=== PATIENT | male | born 1950 | race Caucasian/White ===

== ENCOUNTER 2016-08-26 21:44 | Inpatient (IN) | payer OTHER ==
--- NOTE | ~2016-08-26 | CT71 ---
[facility] A Service of [facility] RADIOLOGY TEXT RESULTS PATIENT: JM CULLEN [facility] 337-01 : 49 UNIT #: [id number] AGE: [address]: Nilo Miller MD SEX: M ORDER DR: [id number] [facility] [address] [facility]. [place], [place] [address] [id number] I MR#: [id number] #: [id number] NAME: JM CULLEN : 1950 SEX: M STUDY DATE/TIME: 08/26/2016 21:22 UNIT: CEDOF ROOM: 56652 STUDY DESCRIPTION: CT Head Wo Contrast Attending Physician: Nilo Miller M.D. Ordering Physician: Jac Li D.O. Primary Care Physician: No Primary Care Physician MEDICAL IMAGING REPORT This report is preliminary unless electronic signature is present EXAM CT brain without contrast. HISTORY Fever and confusion today. TECHNIQUE This CT exam was performed with one or more of the following radiation dose reduction techniques: automatic exposure control, adjustment of mA and/or kV according to patient size, and iterative reconstruction. FINDINGS CT brain without contrast demonstrates mild chronic ischemic changes in the deep white matter bilaterally. Tiny chronic lacunar infarct in the left alberto was better demonstrated on CT 08/12/2016. No intracranial hemorrhage, mass, or edema. No midline shift or ventricular dilatation or extraaxial fluid collection. Minimal mucosal thickening in the floor of the maxillary sinuses. IMPRESSION 1. No acute findings. 2. Mild chronic ischemic changes in the deep white matter bilaterally and small chronic lacunar infarct in the left alberto. Dictated by... Shalom Bryant M.D. THIS IS AN ELECTRONICALLY VERIFIED REPORT Shalom Bryant M.D. at 08/27/2016 3:34 PM DFL/kelsey [facility] A Service of [facility] RADIOLOGY TEXT RESULTS PATIENT: JM CULLEN LOCATION: [facility] 337-01 : [birth year] UNIT #: [id number] AGE: [address]: Nilo Miller MD SEX: M ORDER DR: TD: 08/27/2016 09:52 JOB #: [id number] MEDICAL IMAGING REPORT COPY
--- NOTE | ~2016-08-26 | EKG ---
PATIENT: JM CULLEN UNIT #: [id number] Ventricular Rate: 110 BPM Atrial Rate: 110 BPM P-R Interval: 144 ms QRS Duration: 134 ms Q-T Interval: 396 ms QTC Calculation(Bezet): 535 ms P Hydro: 66 degrees Calculated R Hydro: 74 degrees Calculated T Hydro: 53 degrees Diagnosis Line: Sinus tachycardia with occasional Premature Diagnosis Line: ventricular complexes Diagnosis Line: Right bundle branch block Diagnosis Line: Possible Inferior infarct , age undetermined Diagnosis Line: Abnormal ECG Diagnosis Line: No previous ECGs available Diagnosis Line: Confirmed by DEV ZAMBRANO MD ([id number]) on Diagnosis Line: 08/27/2016 4:13:13 PM INTERPRETING MD: KENYA GRAMAJO
--- NOTE | ~2016-08-26 | CO ---
Unit #: [id number] #: [id number] Patient: JM CULLEN [id number] [address] [place], [place] [address] [id number] I MR#: [id number] NAME: JM CULLEN ROOM: [facility] Age: 66 Sex: M Admission Date: 08/27/2016 : 1950 Attending Physician: Nilo Miller M.D. Primary Care Physician: Tari Primary Care Physician Requesting Physician: Mahi Grace M.D. Consultation Date: 08/27/2016 CONSULTATION REPORT REASON FOR CONSULTATION Chronic lymphatic leukemia with recurrent cellulitis. HISTORY OF PRESENT ILLNESS Mr. Jm Cullen is 66 years old, well known to me, with a history of CLL who is readmitted to the hospital through the emergency room with acute confusional state with recurrent cellulitis of his left hand. He had a blistering lesion and may have had a spider bite; however, the patient is not clear about it but was helping his son with some woodwork in the outside. According to his , who brought him into the hospital, he became quite confused with temperature of 101.3 in the ER with obvious cellulitis and is currently on broad-spectrum antibiotics. PAST MEDICAL HISTORY 1. Cellulitis, for which he was admitted on 08/12/2016. Blood cultures grew Pasteurella multocida with the cellulitis after a cat bite. He did have toxic metabolic encephalopathy with that admission. 2. Adult-onset diabetes mellitus. 3. History of MRSA sepsis pneumonia in April 2016. 4. Ischemic cardiomyopathy. 5. CLL. 6. Hypothyroidism. 7. Gastritis. 8. COPD. 9. Chronic kidney disease. PAST SURGICAL HISTORY 1. Cholecystectomy. 2. Left cataract extraction. ALLERGIES He has no known medication allergies. FAMILY HISTORY Negative for blood disorders. SOCIAL HISTORY Quit smoking last year. Occasionally uses an E-cigarette. He lives with his . Does not drink any alcohol. REVIEW OF SYSTEMS A 14-point review of systems was taken. CONSTITUTIONAL: As discussed above. EYES: Negative. Unit #: [id number] #: [id number] Patient: JM CULLEN EARS, NOSE, MOUTH AND THROAT: Negative. CARDIOVASCULAR: Negative. RESPIRATORY: Negative. GASTROINTESTINAL: Negative. MUSCULOSKELETAL: Pain and discomfort in his left hand. PSYCHIATRIC: Negative. SKIN: Cellulitis. ALLERGIC/LYMPHATIC: Negative. PHYSICAL EXAMINATION GENERAL: He is currently awake, alert, oriented x3. VITALS: Temperature is 98.2, pulse 60, respirations 18, blood pressure 159/79, O2 sats 96% on room air. HEENT: Exam shows pupils are equal and react well to light. Mild pallor. No icterus. Mucous membranes are moist. NECK: Neck without adenopathy, JVD or thyromegaly. CARDIOVASCULAR SYSTEM: First and second heart sounds were heard. Regular. No murmurs, gallops or rubs. LUNGS: Chest expansion is symmetric. Bilateral equal entry with normal breath sounds. ABDOMEN: Abdomen is soft, nontender. Liver and spleen nonpalpable. EXTREMITIES: He has a black blistering lesion on the base of his fifth metacarpal, along with cellulitis affecting the dorsum of the left hand. LYMPHATICS: No palpable lymph nodes. NEUROLOGIC: He is awake, alert and oriented x3 without any focal findings. DIAGNOSTIC STUDIES LABS: CBC with a white count of 3.4, hemoglobin 11.2, platelet count 111. ProTime is 10.7, INR 1. Metabolic panel shows a BUN of 14, creatinine 1, alkaline phosphatase 132, albumin 4, lactic acid 0.9. ASSESSMENT AND PLAN Mr. Jm Cullen is 66 years old with a history of CLL with multiple complex medical problems, including ischemic cardiomyopathy, hypothyroidism and COPD, readmitted with recurrent cellulitis of his left hand. His previous episode of cellulitis followed a cat bite; however, this episode may be connected with a spider bite or may be unprovoked. He is currently on broad-spectrum antibiotics after obtaining blood cultures. Discussed with Mr. Cullen whose confusional status is improved (1) infection. Recommended quantitative immunoglobulins to see whether his immunodeficiency is related to his recent treatment. Discussed that we will also check his thyroid function, as he has been hypothyroidism in the past secondary to not taking his medications. Thank you for allowing me to participate in his care, and I will follow with you. Dictated by... George Mercer M.D. MIGUEL ANGEL/tony TD: 08/29/2016 14:58 JOB #: [id number] Unit #: [id number] #: [id number] Patient: JM CULLEN CONSULTATION REPORT X George Mercer MD CONSULTATION REPORT
--- NOTE | ~2016-08-26 | CR72 ---
[facility] A Service of [facility] RADIOLOGY TEXT RESULTS PATIENT: JM CULLEN LOCATION: [facility] 337- : 49 UNIT #: [id number] AGE: [address]: Nilo Miller MD SEX: M ORDER DR: [id number] [facility] [address] [place], [place] [address] [id number] I MR#: [id number] Acc #: [id number] NAME: JM CULLEN : 1950 SEX: M STUDY DATE/TIME: 08/26/2016 21:03 UNIT: [facility] ROOM: 37774 STUDY DESCRIPTION: CR Chest Single View Portable Attending Physician: Nilo Miller M.D. Ordering Physician: Jac Li D.O. Primary Care Physician: Primary Care Physician No MEDICAL IMAGING REPORT This report is preliminary unless electronic signature is present EXAM AP portable chest, 08/26/2016 at 21:03 HISTORY 66-year-old male with fever, unresponsive, shortness of breath and acute mental status changes today. COMPARISON AP portable chest, 08/14/2016 FINDINGS Heart size is mildly enlarged but stable with signs of median sternotomy and CABG. Mild vascular prominence is present, similar to prior examination. No definite lung consolidations, pleural effusion or pneumothorax is seen. IMPRESSION Stable cardiomegaly with central vascular prominence or congestion. No lung consolidations. No significant change compared to 08/14/2016. Dictated by... Inés Clifton M.D. THIS IS AN ELECTRONICALLY VERIFIED REPORT Inés Clifton M.D. at 08/27/2016 2:09 PM VELVET/ceci TD: 08/27/2016 09:36 JOB #: [id number] MEDICAL IMAGING REPORT COPY
--- NOTE | ~2016-08-26 | HP ---
Unit #: [id number] #: [id number] Patient: JM CULLEN [id number] [address] [place], [place] [address] [id number] I MR#: [id number] NAME: JM CULLEN. ROOM: 04909 Age: 66 Sex: M Admission Date: 08/27/2016 : 1950 Attending Physician: Mahi Grace M.D. Primary Care Physician: No Primary Care Physician HISTORY AND PHYSICAL CHIEF COMPLAINT Left hand/forearm cellulitis with toxic metabolic encephalopathy. HISTORY This 66-year-old male with AODM, ischemic cardiomyopathy, CLL, is admitted for confusion with left hand and left forearm cellulitis. The patient was in his usual state of health until yesterday. His noted that the left hand had become red with a blood blister over the fifth MCP region. The patient was confused. He was brought to this emergency department last evening with a temperature of 101.3 with obvious cellulitis over the dorsum of the hand, left wrist, and forearm. No trauma. In the ER, the patient was treated with Tylenol, bolused with IV fluids, given Rocephin and vancomycin. He does have a history of MRSA. PAST MEDICAL HISTORY 1. Admission 08/12/2016 for cat bite right forearm with cellulitis and abscess requiring I and D. The patient was noted with toxic metabolic encephalopathy during that hospitalization. 2. AODM with peripheral neuropathy. 3. MRSA, sepsis and pneumonia 04/2016. 4. Ischemic cardiomyopathy, ejection fraction 45%, status post PCI and stent and status post four vessel CABG. 5. CLL, followed by Dr. Mercer. 6. Hypothyroidism. 7. Gastritis noted on EGD 02/2016. 8. COPD. 9. Chronic kidney disease. 10. Left cataract extraction. 11. Cholecystectomy. ALLERGIES No known drug allergies. HOME MEDICATIONS 1. Possibly Neurontin. 2. Glucotrol 5 mg q. a.m. 3. Synthroid 0.05 mg daily. 4. Aspirin 81 mg daily. 5. Protonix 20 mg daily. FAMILY HISTORY Unit #: [id number] #: [id number] Patient: JM CULLEN CAD and diabetes mellitus. SOCIAL HISTORY The patient lives with his and [id number]. He stopped smoking last fall but still uses an e-cigarette, does not use alcohol. REVIEW OF SYSTEMS Difficult to obtain as patient, himself, is a poor historian. He is quite hard of hearing and most of the history was obtained from . PHYSICAL EXAMINATION GENERAL APPEARANCE: 66-year-old male, currently in no acute distress. VITAL SIGNS: Temperature 101.3, pulse 102, respirations 18. Initial blood pressure 170/77. O2 saturation 92% on room air. HEENT: Eyes PERRLA. Extraocular muscles are intact. Pharynx is benign. NECK: Supple without adenopathy or thyromegaly. CHEST: Does reveal some crackles at the bases. CARDIAC: Normal S1 and S2 without definite murmur. ABDOMEN: Bowel sounds are present. No hepatosplenomegaly, tenderness or masses. EXTREMITIES: No pedal edema noted. There is obvious cellulitis over the dorsum of the left hand, left wrist, left forearm with a blood blister noted over the left MCP region. No crepitus. Good radial pulse noted. No splinter hemorrhages over the fingernail beds. NEUROLOGIC EXAM: The patient is awake, alert. He is actually oriented x3. His cranial nerves are intact except that he is hard of hearing. He has equal strength throughout. DIAGNOSTIC STUDIES LABORATORY: Hematocrit is 34.2, white blood count 3.4, platelet count 111. Only two neutrophils noted, and 94 lymphocytes. Coags normal. SMA-12 - glucose 139, chloride is 98, alkaline phos. 132. BNP is 383 which is stable from April. Lactic acid is normal. Acetaminophen, salicylate, alcohol levels are negligible. Cardiac markers are negative. Flu serology negative. Urine tox screen positive for opiates. Urinalysis - 1+ protein without significant white or red cells. IMAGING: Chest x-ray - stable cardiomegaly. Mild pulmonary vascular congestion unchanged. Head CT - no acute disease. Mild small vessel ischemic disease noted with a lacunar infarct left alberto. Wrist shows mild soft tissue swelling. CARDIOVASCULAR: EKG - sinus tachycardia, rate 110 with a right bundle branch block which was noted previously. One PVC noted. ASSESSMENT Unit #: [id number] #: [id number] Patient: JM CULLEN 1. Left hand/forearm cellulitis with a bullous lesion over the left hand. No obvious abscess noted. 2. Toxic metabolic encephalopathy. 3. Chronic lymphocytic leukemia with significant neutropenia. 4. History of methicillin resistant Staph aureus. 5. Adult onset diabetes mellitus. 6. Ischemic cardiomyopathy, ejection fraction 45%, status post percutaneous coronary intervention, stent and coronary artery bypass graft. 7. Chronic obstructive pulmonary disease. PLANS 1. Vancomycin, Zosyn, a dose of Florastor. 2. IV fluids and supportive treatment. Hold sedating medicines. 3. SCDs for DVT prophylaxis. 4. Sliding scale insulin and hold Glucotrol. 5. Hematology to see. Will place in reverse isolation. 6. I discussed with family if patient should develop an abscess left hand, he may need transfer to [facility] for surgery. However, I do not see an obvious abscess at present. Dictated by Mahi Grace M.D. AML/df TD: 08/27/2016 05:33 JOB #: [id number] HISTORY AND PHYSICAL X Mahi Grace MD X HISTORY AND PHYSICAL
--- NOTE | ~2016-08-26 | CR281 ---
[facility] A Service of [facility] RADIOLOGY TEXT RESULTS PATIENT: JM CULLEN LOCATION: [facility] 337-01 : [birth year] UNIT #: [id number] AGE: [address]: Nilo Miller MD SEX: M ORDER DR: [id number] [facility] [address] [place], [place] [address] [id number] I MR#: [id number] Acc #: [id number] NAME: JM CULLEN : 1950 SEX: M STUDY DATE/TIME: 08/26/2016 22:45 UNIT: [facility] ROOM: [facility] STUDY DESCRIPTION: CR Wrist Min 3 View Lt Attending Physician: Nilo Miller M.D. Ordering Physician: Jac Li D.O. Primary Care Physician: Primary Care Physician No MEDICAL IMAGING REPORT This report is preliminary unless electronic signature is present EXAM Left wrist, 08/26 at 22:45 INDICATION Swelling and wrist pain today. No trauma. FINDINGS 3 views of the wrist were obtained. There is no fracture or malalignment identified. There is some soft tissue swelling on the dorsum of the wrist. No soft tissue gas or radiopaque foreign body is seen. IMPRESSION Mild soft tissue swelling on the dorsum of the wrist, otherwise negative. Dictated by... Mario Potts Jr., M.D. THIS IS AN ELECTRONICALLY VERIFIED REPORT Mario Potts Jr., M.D. at 08/27/2016 9:58 PM JEAN-PAUL/ceci TD: 08/27/2016 10:19 JOB #: [id number] MEDICAL IMAGING REPORT COPY
--- NOTE | ~2016-08-26 | DS ---
Unit #: [id number] #: [id number] Patient: JM CULLEN [id number] [address] [address] [id number] I MR#: [id number] NAME: JM CULLEN. ROOM: [facility] Age: 66 Sex: M Admission Date: 08/27/2016 : 1950 Discharge Date: 08/28/2016 Attending Physician: Nilo Miller M.D. Primary Care Physician: No Primary Care Physician DISCHARGE SUMMARY DISCHARGE DIAGNOSES 1. Noncompliance - patient left against medical advice. 2. Right hand cellulitis. 3. Toxic metabolic encephalopathy. 4. Chronic lymphocytic leukemia. 5. Type 2 diabetes. 6. History of coronary artery disease. 7. Chronic obstructive pulmonary disease. 8. Hypothyroidism. [employer] Oncology/Hematology - Dr. Russ. PROCEDURES None. IMAGING Imaging consists of chest x-ray on 08/26/16. Impression - stable cardiomegaly with central vascular prominence or congestion. No lung consolidations. No significant change compared to 08/14/16. CT head without contrast. Impression - no acute findings. Mild chronic ischemic changes in the deep white matter bilaterally. Small chronic lacunar infarcts in the left alberto. X-ray of wrist. Impression is mild soft tissue swelling on the dorsum of the wrist, otherwise negative. LABS Today's labs - the patient has glucose of 117, BUN of 12, creatinine 1.0, sodium is 145, potassium 3.7, chloride 106, CO2 is 26, calcium is 8.8, magnesium is 2.0, protein is 7.6, albumin is 4.0. Total bilirubin is 1.6. AST is 27, ALT is 21, alkaline phos. is 132. BNP is 383. Hemoglobin A1c was 5.7. CBC with WBC of 2.3, RBC of 3.17, hemoglobin 9.5, hematocrit 28.7, MCV 90.6, MCH 30.1, MCHC 33.2, RDW 15.2, platelets of 85, MPV is 8.5. HOSPITAL COURSE The patient is a 66-year-old male with a past medical history of type 2 diabetes, ischemic cardiomyopathy, CLL, followed by Dr. Russ, who presents to [facility] due to left forearm swelling and confusion. The patient was in his usual state of health until the day Unit #: [id number] #: [id number] Patient: JM CULLEN prior to hospitalization where his noted that the left hand had become red with a blister over the fifth metacarpal region. The patient was confused. He was brought to the emergency department where he had a fever with a temperature of 101.3 with obvious cellulitis over the dorsum of the hand, left wrist and forearm. No trauma was seen. The patient was given a dose of Rocephin and vancomycin with history of MRSA. The patient was last admitted to our facility 07/2016 where he had a right forearm with cellulitis and abscess requiring I and D. He was noted to have toxic metabolic encephalopathy during that hospitalization as well. His blood culture at that time had grown Pasteurella. He was treated with vancomycin and Zosyn. Dr. Russ of hematology was seen in consultation due to history of CLL with neutropenia. It was felt that maybe he had another episodes of cellulitis due to his neutropenia. At his time, I feel that patient still has much swelling in his arms and the redness has not improved much. I would still recommend that patient stay hospitalized for continued IV antibiotics and for CT scan of his hand but he has adamantly refused to stay. Therefore, he is being discharged against medical advice. Dictated by.Alysha. Osei Ayala PA-C for Eva Carlos/rajwinder TD: 08/29/2016 07:34 JOB #: [id number] DISCHARGE SUMMARY X X DISCHARGE SUMMARY
[2016-08-26 21:21] LABS: BASOPHIL% 0.1 % (0-2.5); DIFF IND YES; EOSINOPHIL% 0.1 % (0.0-7.0); HEMATOCRIT 34.2 % (38.0-50.0); HEMOGLOBIN 11.2 gm/dL (13.0-16.0); LYMPHOCYTE# 3.4 X10e3 (1.0-3.5); LYMPHOCYTE% 98.2 % (17.0-45.0); MEAN CELL VOLUME 90.7 FL (83-96); MEAN CORPUSCULAR HEMOGLOBIN 29.6 PG (28-34); MEAN CORPUSCULAR HGB CONC 32.7 g/dL (30-36); MEAN PLATELET VOLUME 8.1 FL (6.5-11.5); MONOCYTE% 0.1 % (3.0-12.0); NEUTROPHIL# 0.1 X10e3 (1.5-7.1); NEUTROPHIL% 1.5 % (40-75); PLATELET COUNT 111 X10e3 (140-420); RED BLOOD COUNT 3.77 X10e (3.90-5.60); RED CELL DISTRIBUTION WIDTH 15.2 % (11.0-15.5); WHITE BLOOD COUNT 3.4 X10e3 (4.0-10.5)
[~2016-08-26 21:44] MED LIST: ALBUTEROL17 GM INH; ALBUTEROL20 ml; ALDACTONE25 MG PO; ASPIRIN81 M2 PO; AUGMENTIN875 M1 PO; BAYER ASPIRIN325 M1; BYSTOLIC PO; CIPRO PO; CLINDAMYCIN HC300 MG PO; FLAGYL PO; FUROSEMIDE40 MG PO; GABAPENTIN600 MG; GLUCOPHAGE500 MG PO; GLUCOTROL PO; LASIX PO; LEVAQUIN750 M1 PO; LEVOTHYROXINE50 MCG PO; LISINOPRIL PO; METFORMIN HCL500 M1 PO; MICRO-K PO; NEURONTIN600 MG PO; PERCOCET 5-3251 TAB PO; PERCOCET5/325 PO; POTASSIUM CHLO10 ME1 PO; PREDNISONE10 MG/DOSE PO; PROTONIX PO; SIMVASTATIN40 MG PO; SYMBICORT INH; SYNTHROID PO; TRAMADOL HCL50 M1; TRAMADOL HCL50 M1 PO; TRILPIX PO; ULTRAM PO; ZANTAC150 MG PO; ZESTRIL40 MG; ZOCOR PO
[2016-08-26 21:46] LABS: ALKALINE PHOSPHATASE 132 U/L (32-92); ALT (SGPT) 21 U/L (10-40); AST (SGOT) 27 U/L (10-42); BILIRUBIN, DIRECT 0.2 mg/dL (0.0-0.2); BILIRUBIN,TOTAL 1.2 mg/dL (0.2-2.0); BLOOD UREA NITROGEN 14 mg/dL (9-23); CALCIUM SERUM 8.9 mg/dL (8.4-10.2); CARBON DIOXIDE 29 mmol/L (22-31); CHLORIDE 98 mmol/L (100-111); GLOM FILT RATE Estimated ABOVE60 mL/min (>60); GLUCOSE FASTING 139 mg/dL (70-110); POTASSIUM 4.1 mmol/L (3.5-5.1); PROTEIN TOTAL SERUM 7.6 g/dL (6.0-8.3); SALICYLATE <4.0 mg/dL; SODIUM 135 mmol/L (135-145)
[2016-08-26 21:49] LABS: PARTIAL THROMBOPLASTIN TIME 26.8 SECONDS (23.5-31.3); PROTHROMBIN TIME (PATIENT) 10.7 SECONDS (9.6-11.5)
[2016-08-26 21:52] LABS: ACETAMINOPHEN <10 ug/mL; ALCOHOL BLOOD <5 mg/dL (0)
[2016-08-26 22:16] LABS: HYPOCHROMIA SL; PLATELET ESTIMATE NORMAL (NORMAL); ROULEAUX SLIGHT
[2016-08-26 22:17] LABS: URINE SOURCE CLEAN CATCH
[2016-08-26 22:17] LABS: INFLUENZA A NEG (NEG); INFLUENZA B NEG (NEG)
[2016-08-26 22:17] LABS: ANISOCYTOSIS MOD; POIKILOCYTOSIS MOD
[2016-08-26 22:33] LABS: URBCS1 AUWI 0-2 /[HPF] (0-2); URINE APPEARANCE CLEAR; URINE BACTERIA AUWI NEG (NEGATIVE); URINE BILIRUBIN NEG (NEG); URINE BLOOD NEG (NEG); URINE COLOR YELLOW; URINE GLUCOSE NEG (NEG); URINE KETONE NEG (NEG); URINE LEUKOCYTE ESTERASE NEG (NEG); URINE NITRATE NEG (NEG); URINE PROTEIN 1+ (NEG); URINE SPECIFIC GRAVITY 1.015 (1.003-1.035); URINE SQUAMOUS EPITHELIAL CELL NONE SEEN /[HPF]; URINE UROBILINOGEN 0.2 MG/DL (NEG); UWBCS1 AUWI 0-2 (0-5)
[2016-08-26 22:34] LABS: CULTURE INDICATED? NO
[2016-08-26 23:19] LABS: AMPHETAMINE NEG (NEG); BARBITURATES NEG (NEG); BENZODIAZEPINES NEG (NEG); COCAINE NEG (NEG); MARIJUANA NEG (NEG); OPIATES POS (NEG); TRICYCLIC ANTIDEPRESSANTS NEG (NEG); U METHADONE NEG (NEG)
[2016-08-26 23:33] LABS: ARTERIAL BLD GAS O2 SATURATION 95.4 % (90.0-100.0); ARTERIAL BLOOD GAS CARBOXY HB 1.3 %sat (0.0-9.0); ARTERIAL BLOOD GAS HCO3 27.7 mmol/L; ARTERIAL BLOOD GAS MET HB 1.1 %sat (0.0-2.0); ARTERIAL BLOOD GAS PCO2 42.9 mmHg (35.0-45.0); ARTERIAL BLOOD GAS PO2 89.9 mmHg (80.0-100); ARTERIAL BLOOD GAS pH 7.418 (7.350-7.450)
[2016-08-26 23:34] LABS: ARTERIAL BLOOD GAS ALLEN TEST NORMAL; ARTERIAL BLOOD GAS ART SITE LEFT RADIAL; ARTERIAL BLOOD GAS DELIVERY NASAL CANNULA; ARTERIAL DRAW? YES
[2016-08-27 18:33] LABS: THYROID STIMULATING HORMONE 6.11 uIU/ml (0.34-5.60)
[2016-08-27 18:40] LABS: FREE THYROXIN (T4) 1.16 ng/dL (0.58-1.64)
[2016-08-28 06:44] LABS: HEMATOCRIT 28.7 % (38.0-50.0); HEMOGLOBIN 9.5 gm/dL (13.0-16.0); MEAN CELL VOLUME 90.6 FL (83-96); MEAN CORPUSCULAR HEMOGLOBIN 30.1 PG (28-34); MEAN CORPUSCULAR HGB CONC 33.2 g/dL (30-36); MEAN PLATELET VOLUME 8.5 FL (6.5-11.5); RED BLOOD COUNT 3.17 X10e (3.90-5.60); RED CELL DISTRIBUTION WIDTH 15.2 % (11.0-15.5); WHITE BLOOD COUNT 2.3 X10e3 (4.0-10.5)
[2016-08-28 07:22] LABS: BLOOD UREA NITROGEN 12 mg/dL (9-23); CALCIUM SERUM 8.8 mg/dL (8.4-10.2); CARBON DIOXIDE 26 mmol/L (22-31); CHLORIDE 106 mmol/L (100-111); GLOM FILT RATE Estimated ABOVE60 mL/min (>60); GLUCOSE FASTING 117 mg/dL (70-110); POTASSIUM 3.7 mmol/L (3.5-5.1); SODIUM 142 mmol/L (135-145)
[2016-08-30 18:36] LABS: IMMUNOGLOBULIN A 130 mg/dL (81-463); IMMUNOGLOBULIN E 5 kU/L (<=114); IMMUNOGLOBULIN G 1241 mg/dL (694-1618); IMMUNOGLOBULIN M 24 mg/dL (48-271)
== END 2016-08-28 14:23 | disposition left against medical advice (07) | DRG 602 ==
LOC: CED 21:44 → CEDOF 08-27 01:00 → C3A PCU 08-27 11:10
PROVIDERS: Emergency Medicine; Internal Medicine; Internal Medicine Hematology & Oncology
DX: L03.114 Cellulitis of left upper limb (principal); G92 Toxic encephalopathy; D70.9 Neutropenia, unspecified; C91.10 Chronic lymphocytic leukemia of B-cell type not having achieved remission; E11.22 Type 2 diabetes mellitus with diabetic chronic kidney disease; I25.5 Ischemic cardiomyopathy; Z86.14 Personal history of Methicillin resistant Staphylococcus aureus infection; E11.42 Type 2 diabetes mellitus with diabetic polyneuropathy; Z79.84 Long term (current) use of oral hypoglycemic drugs; E03.9 Hypothyroidism, unspecified; J44.9 Chronic obstructive pulmonary disease, unspecified; N18.9 Chronic kidney disease, unspecified; Z98.42 Cataract extraction status, left eye; Z90.49 Acquired absence of other specified parts of digestive tract; Z79.82 Long term (current) use of aspirin; Z91.19 Patient's noncompliance with other medical treatment and regimen
CPT/HCPCS: 36415; 36600; 70450; 71010; 73110; 80048; 80076; 80307; 81003; 82784; 82785; 82803; 82947; 83036; 83605; 83735; 83880; 84439; 84443; 85025; 85027; 85610; 85652; 85730; 86140; 87040; 87804; 93005; 94760; 96365; 96367; 99285; G0480; J0696; J2543; J3370